=== PATIENT | male | born 1990 | race American Indian/Alaskan Native ===

== ENCOUNTER 2018-06-24 10:12 | Emergency (ER) | payer SELFPAY ==
[2018-06-24 11:30] LABS: Basophils % (Auto) 0.3 % (0.0-1.8); Eosinophils # (Auto) 0.2 K/mm3 (0.0-0.4); Eosinophils % (Auto) 2.3 % (0.0-4.3); Hematocrit 45.8 % (35.5-45.6); Hemoglobin 15.2 gm/dl (11.8-15.2); Lymphocytes # (Auto) 1.3 K/mm3 (1.2-5.4); Lymphocytes % (Auto) 17.9 % (13.4-35.0); Mean Corpuscular HGB Conc 33 % (32-34); Mean Corpuscular Hemoglobin 26 pg (28-32); Mean Corpuscular Volume 79 fl (84-94); Monocytes # (Auto) 0.6 K/mm3 (0.0-0.8); Monocytes % (Auto) 8.4 % (0.0-7.3); Platelet Count 240 K/mm3 (140-440); Red Blood Count 5.83 M/mm3 (3.65-5.03)
--- NOTE | 2018-06-24 11:37 | Emergency Department Report ---
ED Psych HPI - General Chief Complaint: Psych Stated Complaint: SUICIDAL Time Seen by Provider: 06/24/18 11:36 Source: patient, EMS Mode of arrival: Ambulatory Limitations: No Limitations - History of Present Illness Initial Comments: Patient said he is frustrated with life because of financial reasons. This morning he caught his left forearm with a knife. He said he did it in other to feel pain. He denies any suicidal or homicidal ideation. Patient has a history of anxiety and depression and he is not on any medication. He said he used to take Prozac for his depression but he has run out of his medication. MD Complaint: feels depressed -: Sudden, This morning Associated Psychiatric Symptoms: depression History of same: Yes Quality: constant Improves With: none Worsens With: none Context: not taking psychiatric, significant life stressor Associated Symptoms: denies other symptoms Treatments Prior to Arrival: none If Self Harm: self-inflicted trauma - Related Data Allergies Allergy/AdvReac Type Severity Reaction Status Date / Time iodine Allergy Angioedema Verified 06/24/18 10:33 ED Review of Systems ROS: Stated complaint: SUICIDAL Other details as noted in HPI Comment: All other systems reviewed and negative Constitutional: denies: chills, fever Eyes: denies: eye pain ENT: denies: ear pain, throat pain Respiratory: denies: cough, orthopnea, shortness of breath Cardiovascular: denies: chest pain, palpitations, dyspnea on exertion, orthopnea , edema, syncope Endocrine: no symptoms reported Gastrointestinal: denies: abdominal pain, nausea, vomiting, diarrhea Genitourinary: denies: urgency, dysuria, frequency Musculoskeletal: denies: back pain, joint swelling Skin: denies: rash, lesions, change in color Neurological: denies: headache, weakness, numbness Psychiatric: anxiety, depression. denies: auditory hallucinations, visual hallucinations, homicidal thoughts, suicidal thoughts Hematological/Lymphatic: denies: easy bleeding, easy bruising ED Past Medical Hx - Social History Smoking Status: Current Every Day Smoker Substance Use Type: Alcohol ED Physical Exam - General Limitations: No Limitations General appearance: alert, in no apparent distress - Head Head exam: Present: atraumatic, normocephalic, normal inspection - Eye Eye exam: Present: normal appearance, PERRL, EOMI Pupils: Present: normal accommodation - ENT ENT exam: Present: normal exam, normal orophraynx, mucous membranes moist - Neck Neck exam: Present: normal inspection, full ROM. Absent: tenderness - Respiratory Respiratory exam: Present: normal lung sounds bilaterally. Absent: respiratory distress, wheezes, rales, rhonchi, stridor - Cardiovascular Cardiovascular Exam: Present: regular rate, normal rhythm, normal heart sounds - GI/Abdominal GI/Abdominal exam: Present: soft, rigid, normal bowel sounds. Absent: distended , tenderness, guarding, rebound - Extremities Exam Extremities exam: Present: tenderness, normal capillary refill, other (12 cm deep laceration involving the subcuteanous fat tissue but not the muscle. Bleeding is controlled.) - Back Exam Back exam: Present: normal inspection, full ROM. Absent: tenderness - Neurological Exam Neurological exam: Present: alert, oriented X3, CN II-XII intact - Psychiatric Psychiatric exam: Present: depressed, flat affect. Absent: homicidal ideation, suicidal ideation - Skin Skin exam: Present: warm, dry, intact, normal color. Absent: rash ED Course Vital Signs 06/24/18 06/24/18 06/24/18 10:34 11:01 11:02 Temperature 98.6 F 98.6 F Pulse Rate 80 80 Respiratory 18 18 18 Rate Blood Pressure 115/77 Blood Pressure 115/77 [Left] O2 Sat by Pulse 98 98 98 Oximetry - Reevaluation(s) Reevaluation #1: 06/24/18 13:17 Patient is medically clear for psychiatric evaluation. - Laceration /Wound Repair Left Upper Anterior Hand Wound Location: upper extremity Wound Length (cm): 12 (Deep) Wound's Depth, Shape: into muscle (Involving the subcuteanous fat but not the muscle.), linear Wound Explored: clean Irrigated w/ Saline (ccs): 250 Betadine Prep?: Yes Anesthesia: Lidocaine w/ Epi Volume Anesthetic (ccs): 8 Wound Debrided: None Wound Repaired With: sutures Suture Size/Type: 4:0, proline Number of Sutures: 9 Layer Closure?: No Sterile Dressing Applied?: Yes (Bacitracin Onintment) Progress: Patient tolerated the procedure well. No Complication. ED Medical Decision Making - Lab Data Result diagrams: 06/24/18 11:20 06/24/18 11:20 - Medical Decision Making Suicidal Behavior. Left Forearm Laceration. H/O Depression. Critical care attestation.: If time is entered above; I have spent that time in minutes in the direct care of this critically ill patient, excluding procedure time. ED Disposition Clinical Impression: History of major depression Laceration of left forearm Qualifiers: Encounter type: initial encounter Qualified Code(s): S51.812A - Laceration without foreign body of left forearm, initial encounter UTI (urinary tract infection) Qualifiers: Urinary tract infection type: acute cystitis Hematuria presence: without hematuria Qualified Code(s): N30.00 - Acute cystitis without hematuria Disposition: DC/TX-65 PSY HOSP/PSY UNIT Is pt being admited?: No Does the pt Need Aspirin: No Condition: Stable Referrals: PRIMARY CARE, [Primary Care Provider] - 3-5 Days Time of Disposition: 11:00
[2018-06-24] MEDS ORDERED: XYLOCAINE 2%/EPI 1:100,000 INFILTRATI ONE (11:46)
[2018-06-24] MEDS ORDERED: BOOSTRIX IM ONE (11:46)
[2018-06-24] MEDS ORDERED: ANCEF IM ONE (11:47)
[2018-06-24 11:49] LABS: BUN/Creatinine Ratio 9; Blood Urea Nitrogen 10 mg/dL (9-20); Calcium 9.8 mg/dL (8.4-10.2); Hemolysis Index 8
[2018-06-24] MEDS ORDERED: NACL 0.9% 500 ML IR ONE (11:55)
[2018-06-24] MEDS ORDERED: POLYSPORIN TP NR (12:00)
[2018-06-24 12:13] LABS: Alanine Aminotransferase 20 units/L (7-56); Albumin 4.9 g/dL (3.9-5)
[2018-06-24 12:14] LABS: Bilirubin,Direct < 0.2 mg/dL (0-0.2)
[2018-06-24 12:34] LABS: Bilirubin,Urine NEG (Negative); Blood,Urine NEG (Negative); Color,Urine Amber (Yellow); Mucus,Urine 2+ /HPF; Sperm,Urine FEW /HPF (NP)
[2018-06-24] MEDS ORDERED: WATER FOR INJ (PF) ONE (12:41)
[2018-06-24 12:59] LABS: Amphetamine Screen,Urine PRESUMPTIVE NEGATIVE; Benzodiazepines Screen,Urine PRESUMPTIVE NEGATIVE; Cannabinoid Screen,Urine PRESUMPTIVE NEGATIVE; Cocaine Screen,Urine PRESUMPTIVE NEGATIVE; Methadone Screen,Urine PRESUMPTIVE NEGATIVE; Opiate Screen,Urine PRESUMPTIVE NEGATIVE
[2018-06-24] MEDS ORDERED: BACTRIM DS PO ONE (14:01)
[2018-06-25] MEDS ORDERED: HABITROL TD PRN (16:25)
--- NOTE | 2018-06-25 17:42 | Consultation ---
History of Present Illness - Reason for Consult Consult date: 06/25/18 Reason for consult: 1013 - Chief Complaint Chief complaint: "I was stressed." - History of Present Psychiatric Illness 27 year old AAM seen for psychiatric evaluation in the emergency department. He presented to the ER after cutting his left forearm, which required sutures. He was he had worked a 12 hour shift, walked 2 hours home, and got aggravated with someone. He states that instead of acting out toward this person, he cut himself. He denies it to be a suicide attempt. He reports a history of self harming behavior via cutting, and he denies a history of suicide attempts. He was previously on prozac and lexapro. He is not on medications currently. He was hospitalized at [facility] 2 months ago after family urged him to seek help for suicidal ideation. He denies it to be that serious. He denies manic or psychotic symptoms currently or previously. He drinks alcohol 1-2 x per week and denies binging. He smokes 1PPD of cigarettes. He denies illicit substance use. Medications and Allergies Allergies Allergy/AdvReac Type Severity Reaction Status Date / Time iodine Allergy Angioedema Verified 06/24/18 10:33 Active Meds: Active Medications Nicotine (Habitrol) 21 mg TD QDAY PRN PRN Reason: Agitation Past psychiatric history - Past Medical History Past Medical History: No medical history - past Psychiatric treatment and history Psych: Anxiety, Depression - Social History Social history: lives with family Mental Status Exam - Vital signs Last Vital Signs Temp 98.1 F 06/25/18 10:10 Pulse 70 06/25/18 10:10 Resp 16 06/25/18 12:28 BP 118/68 06/25/18 10:10 Pulse Ox 97 06/25/18 12:28 - Exam Orientation: time, place, person Affect: depressed Mood: congruent with affect Thought content: other (denies suicidal or homicidal ideation) Thought Process: Intact Perceptions: none Speech: normal rate and pattern Concentration: focused Motor activity: normal Level of consciousness: alert Memory: Intact Sleep Symptoms: None Interaction: cooperative Results Result Diagrams: 06/24/18 11:20 06/24/18 11:20 All other labs normal. Assessment and Plan Assessment and plan: Impression: self harming behavior (self inflicted laceration to left forearm)-requiring sutures major depression anxiety d/o, unspecified tobacco use d/o He has a history of self harming behaviors Recommendations: Continue 1013 and transfer to inpatient psychiatric facility Start prozac 10mg daily for depression and anxiety. He previously took it and denies having side effects He asks for a nicotine patch, 21mg daily
[2018-06-26] MEDS: PROzac PO SCH (09:50)
--- NOTE | 2018-06-26 23:18 | Progress Note ---
Subjective - Reason for Consult Consult date: 06/26/18 Reason for consult: Psychiatric Follow-up Evaluation - Chief Complaint Chief complaint: "I feel good" Patient is a 27 year old AAM seen for a psychiatric evaluation in the emergency department. He presented to the emergency room after cutting his left forearm, which required sutures. He states, " I regret that I did that. I was tired and frustrated." Per patient he had worked a 12 hour shift, walked 2 hours home, and got aggravated with someone. He states that instead of acting out toward this person, he cut himself. Mental Status Exam - Vital signs Last Vital Signs Temp 98.2 F 06/26/18 19:24 Pulse 60 06/26/18 19:24 Resp 14 06/26/18 19:24 BP 132/88 06/26/18 19:24 Pulse Ox 100 06/26/18 19:24 - Exam Narrative exam: Mental Status Exam General Appearance: Causally Dressed-hospital gown Eye Contact: Intermittent Orientation: Alert and oriented x 4 ( person, place, time, and situation) Attitude/Behavior: Cooperative Sensorium: Distracted Psychomotor & Musculoskeletal Activity: WNL Mood: "Good" Depressed, anxious Affect: Constricted Speech/Language: Normal rate and tone Thought Processes: Circumstantial Thought Content: Impoverished; patient denies delusions Perception: WNL-patient denies A/V/T hallucinations Concentration/Attention: Impaired Suicidal Ideations/Plan: Patient denies Homicidal Ideations/Plan: Patient denies Judgment: Poor Insight: Variable Assessment and Plan Impression: MDD. Unspecified Anxiety DO. Hx of self injury. Today the patient is calm and cooperative during the assessment. He denies SI/HI's, A/VH's, and delusions. DDx: R/O Bipolar DO, Personality DO Recommendation/Plan: 1. Continue 1013 in 24 hours to determine proper disposition. 2. Continue Prozac 10 mg PO daily for depression/anxiety a home medication. Discussed possible suicidality/medication induced ck with the patient reference Prozac. 3. Will continue to monitor mood, sleep, appetite, compliance, and side effects.
[2018-06-27] MEDS: PROzac PO SCH (10:30)
--- NOTE | 2018-06-27 10:55 | Progress Note ---
Subjective - Reason for Consult Consult date: 06/27/18 Reason for consult: Psychiatry Follow-up - Chief Complaint Chief complaint: "I am better" 27 year old AAM seen for psychiatric evaluation in the emergency department. He presented to the ER after cutting his left forearm which required sutures. Today the patient is calm and cooperative during the assessment. He stated cutting his FA because he was "stressed." He stated cutting himself in the past for a similar reason. He stated that he was never suicidal when he arrived to the ER. He stated that he saw a therapist in the past for "mental health." He denies SI/HI's and AVH's. He denies any side effects of his medication. Mental Status Exam - Vital signs Last Vital Signs Temp 98.4 F 06/27/18 10:00 Pulse 60 06/27/18 10:00 Resp 18 06/27/18 10:00 BP 121/86 06/27/18 10:00 Pulse Ox 100 06/27/18 10:00 - Exam Narrative exam: MSE: Appearance: calm, cooperative Behavior: regular eye contact Speech: regular rate and tone Mood: "okay" Affect: congruent to mood Thought Process: circumstantial Thought Content: denies SI/HI's and AVH's Motor Activity: lying in bed Cognition: A/O x 3 Insight: variable Judgment: variable Assessment and Plan Impression: MDD. Unspecified Anxiety DO. Hx of self injury. Today the patient is calm and cooperative during the assessment. DDx: R/O Bipolar DO, Personality DO Recommendation/Plan: Reevaluate 1013 in 24 hours to determine proper dispo. Continue Prozac 10 mg PO daily for depression/anxiety a home medication. Discussed possible suicidality/medication induced ck with the patient reference Prozac.
[2018-06-27] MEDS: LEVAQUIN PO SCH (13:30)
--- NOTE | 2018-06-28 11:07 | Progress Note ---
Subjective - Reason for Consult Consult date: 06/28/18 Reason for consult: Psychiatry Follow-up - Chief Complaint Chief complaint: "I am well" Patient is a 27 year old AAM seen for a psychiatric evaluation in the emergency department. He presented to the emergency room after cutting his left forearm, which required sutures. Today the patient is calm and cooperative during the assessment. He stated that he would like to be referred to outpatient psy services to see a therapist. Per collateral information from his mother Sanaz Romero at [phone], she stated that her son didn't try to kill himself. She stated that he was "stressed" and decide to cut himself. She stated that he has done this in the past and denies that he wanted to kill himself. She stated that she will be the patient's support system. She stated that she feel safe for him to return home when discharged. The patient denies Si/HI's and AVH's. He denies any side effects of his medicaton. Mental Status Exam - Vital signs Last Vital Signs Temp 98.6 F 06/27/18 20:15 Pulse 90 06/27/18 20:15 Resp 20 06/27/18 20:16 BP 130/73 06/27/18 20:15 Pulse Ox 99 06/27/18 20:16 - Exam Narrative exam: MSE: Appearance: calm, cooperative Behavior: regular eye contact Speech: regular rate and tone Mood: "okay" Affect: congruent to mood Thought Process: linear Thought Content: denies SI/HI's and AVH's Motor Activity: ambulatory Cognition: A/O x 3 Insight: appropriate Judgment: appropriate Assessment and Plan Impression: MDD. Unspecified Anxiety DO. Hx of self injury. Today the patient is calm and cooperative during the assessment. The patient is no threat to self. DDx: R/O Bipolar DO, Personality DO I. This screening and assessment is based on information collected from the following sources: II. SUICIDE RISK SCREENING (within last 30 days): A.) Suicidal thoughts/behaviors: No SUICIDE RISK ASSESSMENT III. FACTORS THAT INCREASE RISK: A.) Demographic and Substance Use Factors: None B.) Current/Recent Factors (within past 3 months): Psychosocial/Environmental Factors: None Physical Illness: None Cognitive/Psychological Factors: None C.) Historical Factors: None D.) Diagnostic/Symptom/Treatment Factors: None E.) Acute Risk Factor Severity (DESC; MILD/MOD/SEVERE): N/A Other factors for this individual that increase risk: None IV. FACTORS THAT DECREASE RISK: Resilience/Protective Factors: N/A Other factors for this individual that decrease risk: How to handle stress V. Clinician's Formulation of Risk and Determination of level of Care: This is a 27 year-old AA male who cut his inner left FA with a knife. He stated that he was "stressed" at the time when he injured himself. He acknowledged that he should have not cut himself because that was an unsafe act. He stated that it's a better way to handle these types of situations. The patient is not impaired by substance. He is able to take care of her ADLs and is not at imminent risk of harm to self or others. Consequently, it is the opinion of the treatment team that the patient is at low risk of suicide and does not meet criteria to continue an involuntary psychiatric hold. Estimation of Imminent Risk: Low due to the above explanation. Determination of Level of Care based on Suicide Risk: N/A . Plan and Interventions based on Suicide Risk: The patient isn't impulsive and likely to follow up with outpatient psy services when discharged. VII. Discharge/After Hours Support Plan: N/A Recommendation/Plan: Rescind 1013. Continue Prozac 10 mg PO daily for depression /anxiety a home medication. Discussed possible suicidality/medication induced ck with the patient reference Prozac. Discussed generalized coping skills with the patient. The patient can follow up [facility] for outpatient psy services.
[2018-06-28] MEDS: LEVAQUIN PO SCH (11:21)
[2018-06-28] MEDS: PROzac PO SCH (11:21)
[2018-06-28 11:23] VITALS: BP 120/78
--- NOTE | 2018-06-28 12:29 | Event Note ---
Date: 06/28/18 The patient's 1013 has been discontinued by the psychiatry team. He has no complaints at this time. He is sleeping comfortably. He is not homicidal or suicidal. He will be given a two-week prescriptions last refill on his Prozac as recommended. He can follow up with an outpatient primary care doctor is incidentally a urinalysis which is abnormal. Vital Signs 06/24/18 06/24/18 06/24/18 10:29 10:30 10:34 Temperature 98.6 F Pulse Rate 80 Respiratory 18 Rate Blood Pressure 115/77 115/77 Blood Pressure [Left] O2 Sat by Pulse 98 98 98 Oximetry 06/24/18 06/24/18 06/24/18 11:01 11:02 11:04 Temperature 98.6 F Pulse Rate 80 Respiratory 18 18 Rate Blood Pressure 115/77 Blood Pressure 115/77 [Left] O2 Sat by Pulse 98 98 87 Oximetry 06/24/18 06/24/18 06/24/18 11:16 11:30 20:20 Temperature 98.7 F Pulse Rate 62 Respiratory 18 Rate Blood Pressure 115/77 115/77 Blood Pressure 107/68 [Left] O2 Sat by Pulse 100 100 100 Oximetry 06/25/18 06/25/18 06/25/18 10:10 12:28 19:50 Temperature 98.1 F 98.6 F Pulse Rate 70 61 Respiratory 16 16 16 Rate Blood Pressure 108/72 Blood Pressure 118/68 [Left] O2 Sat by Pulse 97 97 99 Oximetry 06/25/18 06/26/18 06/26/18 20:00 09:35 10:56 Temperature 98.6 F 98.2 F Pulse Rate 61 75 Respiratory 16 18 18 Rate Blood Pressure Blood Pressure 108/72 115/68 [Left] O2 Sat by Pulse 99 100 100 Oximetry 06/26/18 06/26/18 06/27/18 17:52 19:24 08:30 Temperature 98.3 F 98.2 F Pulse Rate 68 60 Respiratory 18 14 18 Rate Blood Pressure 132/88 Blood Pressure 110/74 [Left] O2 Sat by Pulse 96 100 100 Oximetry 06/27/18 06/27/18 06/27/18 10:00 20:15 20:16 Temperature 98.4 F 98.6 F Pulse Rate 60 90 Respiratory 18 20 20 Rate Blood Pressure Blood Pressure 121/86 130/73 [Left] O2 Sat by Pulse 100 99 99 Oximetry 06/28/18 06/28/18 09:22 11:23 Temperature 97.7 F Pulse Rate 58 L Respiratory 20 20 Rate Blood Pressure Blood Pressure 120/78 [Left] O2 Sat by Pulse 100 Oximetry Lab Results 06/24/18 06/24/18 06/24/18 Range/Units 11:20 11:20 11:20 WBC (4.5-11.0) K/mm3 RBC (3.65-5.03) M/mm3 Hgb (11.8-15.2) gm/dl Hct (35.5-45.6) % MCV (84-94) fl MCH (28-32) pg MCHC (32-34) % RDW (13.2-15.2) % Plt Count (140-440) K/mm3 Lymph % (Auto) (13.4-35.0) % [place] % (Auto) (0.0-7.3) % Eos % (Auto) (0.0-4.3) % Baso % (Auto) (0.0-1.8) % Lymph # (1.2-5.4) K/mm3 [place] # (0.0-0.8) K/mm3 Eos # (0.0-0.4) K/mm3 Baso # (0.0-0.1) K/mm3 Seg Neutrophils % (40.0-70.0) % Seg Neutrophils # (1.8-7.7) K/mm3 Sodium 138 (137-145) mmol/L Potassium 4.1 (3.6-5.0) mmol/L Chloride 95.6 L (98-107) mmol/L Carbon Dioxide 27 (22-30) mmol/L Anion Gap 20 mmol/L BUN 10 (9-20) mg/dL Creatinine 1.1 (0.8-1.5) mg/dL Estimated GFR > 60 ml/min BUN/Creatinine Ratio 9 % Glucose 96 (75-100) mg/dL Calcium 9.8 (8.4-10.2) mg/dL Total Bilirubin (0.1-1.2) mg/dL Direct Bilirubin (0-0.2) mg/dL AST (5-40) units/L ALT (7-56) units/L Alkaline Phosphatase (35-129) units/L Total Protein (6.3-8.2) g/dL Albumin (3.9-5) g/dL Albumin/Globulin Ratio % Urine Color (Yellow) Urine Turbidity (Clear) Urine pH (5.0-7.0) Ur Specific [place] (1.003-1.030) Urine Protein (Negative) mg/dL Urine Glucose (UA) (Negative) mg/dL Urine Ketones (Negative) mg/dL Urine Blood (Negative) Urine Nitrite (Negative) Urine Bilirubin (Negative) Urine Urobilinogen (<2.0) mg/dL Ur Leukocyte Esterase (Negative) Urine WBC (Auto) (0.0-6.0) /HPF Urine RBC (Auto) (0.0-6.0) /HPF U Epithel Cells (Auto) (0-13.0) /HPF Urine Mucus /HPF Urine Sperm (INSURANCE PROCESSING CLERK) /HPF Salicylates < 0.3 L (2.8-20.0) mg/dL Urine Opiates Screen Urine Methadone Screen Acetaminophen < 5.0 L (10.0-30.0) ug/mL Ur Barbiturates Screen Ur Phencyclidine Scrn Ur Amphetamines Screen U Benzodiazepines Scrn Urine Cocaine Screen U Marijuana (THC) Screen Drugs of Abuse Note Plasma/Serum Alcohol (0-0.07) % 06/24/18 06/24/18 06/24/18 Range/Units 11:20 11:20 11:20 WBC 7.2 (4.5-11.0) K/mm3 RBC 5.83 H (3.65-5.03) M/mm3 Hgb 15.2 (11.8-15.2) gm/dl Hct 45.8 H (35.5-45.6) % MCV 79 L (84-94) fl MCH 26 L (28-32) pg MCHC 33 (32-34) % RDW 15.0 (13.2-15.2) % Plt Count 240 (140-440) K/mm3 Lymph % (Auto) 17.9 (13.4-35.0) % [place] % (Auto) 8.4 H (0.0-7.3) % Eos % (Auto) 2.3 (0.0-4.3) % Baso % (Auto) 0.3 (0.0-1.8) % Lymph # 1.3 (1.2-5.4) K/mm3 [place] # 0.6 (0.0-0.8) K/mm3 Eos # 0.2 (0.0-0.4) K/mm3 Baso # 0.0 (0.0-0.1) K/mm3 Seg Neutrophils % 71.1 H (40.0-70.0) % Seg Neutrophils # 5.1 (1.8-7.7) K/mm3 Sodium (137-145) mmol/L Potassium (3.6-5.0) mmol/L Chloride (98-107) mmol/L Carbon Dioxide (22-30) mmol/L Anion Gap mmol/L BUN (9-20) mg/dL Creatinine (0.8-1.5) mg/dL Estimated GFR ml/min BUN/Creatinine Ratio % Glucose (75-100) mg/dL Calcium (8.4-10.2) mg/dL Total Bilirubin 0.70 (0.1-1.2) mg/dL Direct Bilirubin < 0.2 (0-0.2) mg/dL AST 40 (5-40) units/L ALT 20 (7-56) units/L Alkaline Phosphatase 92 (35-129) units/L Total Protein 8.1 (6.3-8.2) g/dL Albumin 4.9 (3.9-5) g/dL Albumin/Globulin Ratio 1.5 % Urine Color (Yellow) Urine Turbidity (Clear) Urine pH (5.0-7.0) Ur Specific [place] (1.003-1.030) Urine Protein (Negative) mg/dL Urine Glucose (UA) (Negative) mg/dL Urine Ketones (Negative) mg/dL Urine Blood (Negative) Urine Nitrite (Negative) Urine Bilirubin (Negative) Urine Urobilinogen (<2.0) mg/dL Ur Leukocyte Esterase (Negative) Urine WBC (Auto) (0.0-6.0) /HPF Urine RBC (Auto) (0.0-6.0) /HPF U Epithel Cells (Auto) (0-13.0) /HPF Urine Mucus /HPF Urine Sperm (INSURANCE PROCESSING CLERK) /HPF Salicylates (2.8-20.0) mg/dL Urine Opiates Screen Urine Methadone Screen Acetaminophen (10.0-30.0) ug/mL Ur Barbiturates Screen Ur Phencyclidine Scrn Ur Amphetamines Screen U Benzodiazepines Scrn Urine Cocaine Screen U Marijuana (THC) Screen Drugs of Abuse Note Plasma/Serum Alcohol < 0.01 (0-0.07) % 06/24/18 06/24/18 Range/Units Unknown Unknown WBC (4.5-11.0) K/mm3 RBC (3.65-5.03) M/mm3 Hgb (11.8-15.2) gm/dl Hct (35.5-45.6) % MCV (84-94) fl MCH (28-32) pg MCHC (32-34) % RDW (13.2-15.2) % Plt Count (140-440) K/mm3 Lymph % (Auto) (13.4-35.0) % [place] % (Auto) (0.0-7.3) % Eos % (Auto) (0.0-4.3) % Baso % (Auto) (0.0-1.8) % Lymph # (1.2-5.4) K/mm3 [place] # (0.0-0.8) K/mm3 Eos # (0.0-0.4) K/mm3 Baso # (0.0-0.1) K/mm3 Seg Neutrophils % (40.0-70.0) % Seg Neutrophils # (1.8-7.7) K/mm3 Sodium (137-145) mmol/L Potassium (3.6-5.0) mmol/L Chloride (98-107) mmol/L Carbon Dioxide (22-30) mmol/L Anion Gap mmol/L BUN (9-20) mg/dL Creatinine (0.8-1.5) mg/dL Estimated GFR ml/min BUN/Creatinine Ratio % Glucose (75-100) mg/dL Calcium (8.4-10.2) mg/dL Total Bilirubin (0.1-1.2) mg/dL Direct Bilirubin (0-0.2) mg/dL AST (5-40) units/L ALT (7-56) units/L Alkaline Phosphatase (35-129) units/L Total Protein (6.3-8.2) g/dL Albumin (3.9-5) g/dL Albumin/Globulin Ratio % Urine Color [place] (Yellow) Urine Turbidity Slightly-cloudy (Clear) Urine pH 6.0 (5.0-7.0) Ur Specific [place] 1.031 H (1.003-1.030) Urine Protein 30 mg/dl (Negative) mg/dL Urine Glucose (UA) Neg (Negative) mg/dL Urine Ketones 20 (Negative) mg/dL Urine Blood Neg (Negative) Urine Nitrite Neg (Negative) Urine Bilirubin Neg (Negative) Urine Urobilinogen 4.0 (<2.0) mg/dL Ur Leukocyte Esterase Sm (Negative) Urine WBC (Auto) 15.0 H (0.0-6.0) /HPF Urine RBC (Auto) 2.0 (0.0-6.0) /HPF U Epithel Cells (Auto) 2.0 (0-13.0) /HPF Urine Mucus 2+ /HPF Urine Sperm Few (INSURANCE PROCESSING CLERK) /HPF Salicylates (2.8-20.0) mg/dL Urine Opiates Screen Presumptive negative Urine Methadone Screen Presumptive negative Acetaminophen (10.0-30.0) ug/mL Ur Barbiturates Screen Presumptive negative Ur Phencyclidine Scrn Presumptive negative Ur Amphetamines Screen Presumptive negative U Benzodiazepines Scrn Presumptive negative Urine Cocaine Screen Presumptive negative U Marijuana (THC) Screen Presumptive negative Drugs of Abuse Note Disclamer Plasma/Serum Alcohol (0-0.07) %
== END 2018-06-28 13:58 | disposition home or self-care (01) ==
LOC: ED 10:12 → EEVIPCON 10:12 → ED 06-28 13:58
DX: S51.812A Laceration without foreign body of left forearm, initial encounter (principal); N39.0 Urinary tract infection, site not specified; F32.9 Major depressive disorder, single episode, unspecified; F17.200 Nicotine dependence, unspecified, uncomplicated; Y28.1XXA Contact with knife, undetermined intent, initial encounter; Y93.89 Activity, other specified; Y92.89 Other specified places as the place of occurrence of the external cause; Y99.8 Other external cause status
CPT/HCPCS: 12004; 36415; 80048; 80074; 80307; 81001; 85025; 87086; 90471; 90715; 96372; 99284; G0480; J0690; 80320